=== PATIENT | female | born 1990 | race American Indian/Alaskan Native ===

== ENCOUNTER 2018-12-22 11:54 | Emergency (ER) | payer OTHER ==
--- NOTE | 2018-12-22 12:02 | Emergency Department Report ---
Chief Complaint: Urogenital-Female Stated Complaint: VAGINAL DISCOMFORT Time Seen by Provider: 12/22/18 12:00 - HPI History of Present Illness: vag pain saw her MD was given flagyl on for a week then started period and symptoms still she did not have wet prep or exam numerous sexual partners-3 lmp 3-28 occ etoh rx none pmh none mse completed MSE screening note: Focused history and physical exam performed. Due to findings the following was ordered: ED Disposition for MSE Condition: Stable
[2018-12-22 12:03] VITALS: BP 132/85
[2018-12-22 12:54] LABS: Bilirubin,Urine NEG (Negative); Blood,Urine SM (Negative); Color,Urine Yellow (Yellow); HCG Qualitative,Urine Negative (Negative); Protein,Urine <15 mg/dL mg/dL (Negative); Urobilinogen,Urine < 2.0 mg/dL (<2.0)
--- NOTE | 2018-12-22 14:08 | Emergency Department Report ---
ED Female HPI - General Chief complaint: Urogenital-Female Stated complaint: VAGINAL DISCOMFORT Time Seen by Provider: 12/22/18 12:00 Source: patient Mode of arrival: Ambulatory Limitations: No Limitations - History of Present Illness Initial comments: Multiple sex partners. One male and female to emergency department complaining of having some vaginal discomfort and pruritic fashion for about the last 1 week. States they had a sexual encounter December 01, after which she had some vaginal vaginal irritation was 1 to have that evaluated, was found to have bacterial vaginosis treated with medication, which did stop the discharge but did start a significant amount of itchiness to the to the vaginal area on the . She tried to manage this. They started to develop some vaginal discomfort and progressive fashion so wanted to have it reevaluated. She said the first time she was evaluated. The treatment was just based off of her history and no examination was done and she will like to have a culture and pelvic exam to make sure that that there was nothing makes. Reports no fever, chills, sweats, chest pain, palpitations, hematemesis, hematochezia, vaginal bleeding, dyspareunia Complaint: vaginal discharge Location: suprapubic Radiation: non-radiating Severity: mild Consistency: constant Improves with: none Worsens with: none Are you Now?: No Associated Symptoms: dysuria. denies: vaginal bleeding, abdominal pain, nausea/vomiting, fever/chills, headaches, loss of appetite, syncope, weakness - Related Data Previous Rx's Medication Instructions Recorded Last Taken Type Fluconazole [Diflucan TAB] 150 mg PO ONCE #1 tablet 12/22/18 Unknown Rx metroNIDAZOLE [Flagyl] 500 mg PO Q12HR #14 tab 12/22/18 Unknown Rx Allergies Allergy/AdvReac Type Severity Reaction Status Date / Time No Known Allergies Allergy Verified 12/22/18 12:02 ED Review of Systems ROS: Stated complaint: VAGINAL DISCOMFORT Other details as noted in HPI Constitutional: denies: chills, fever Eyes: denies: eye pain, eye discharge, vision change ENT: denies: ear pain, throat pain Respiratory: denies: cough, shortness of breath, wheezing Cardiovascular: denies: chest pain, palpitations Endocrine: no symptoms reported Gastrointestinal: denies: abdominal pain, nausea, diarrhea Genitourinary: dysuria. denies: urgency, discharge Musculoskeletal: denies: back pain, joint swelling, arthralgia Skin: denies: rash, lesions Neurological: denies: headache, weakness, paresthesias Psychiatric: denies: anxiety, depression Hematological/Lymphatic: denies: easy bleeding, easy bruising ED Past Medical Hx - Past Medical History Previous Medical History?: No - Surgical History Past Surgical History?: No - Social History Smoking Status: Current Some Day Smoker - Medications Home Medications: Home Medications Medication Instructions Recorded Confirmed Last Taken Type Fluconazole [Diflucan TAB] 150 mg PO ONCE #1 tablet 12/22/18 Unknown Rx metroNIDAZOLE [Flagyl] 500 mg PO Q12HR #14 tab 12/22/18 Unknown Rx ED Physical Exam - General Limitations: No Limitations General appearance: alert, in no apparent distress - Head Head exam: Present: atraumatic, normocephalic - Eye Eye exam: Present: normal appearance, PERRL - ENT ENT exam: Present: mucous membranes moist - Neck Neck exam: Present: normal inspection - Respiratory Respiratory exam: Present: normal lung sounds bilaterally. Absent: respiratory distress - Cardiovascular Cardiovascular Exam: Present: regular rate, normal rhythm. Absent: systolic murmur, diastolic murmur, rubs, gallop - GI/Abdominal GI/Abdominal exam: Present: soft, normal bowel sounds - External exam: Present: normal external exam Speculum exam: Present: vaginal discharge (yellowish and heavy), cervical discharge Bi-manual exam: Present: normal bi-manual exam - Extremities Exam Extremities exam: Present: normal inspection - Back Exam Back exam: Present: normal inspection - Neurological Exam Neurological exam: Present: alert, oriented X3 - Psychiatric Psychiatric exam: Present: normal affect, normal mood - Skin Skin exam: Present: warm, dry, intact, normal color. Absent: rash ED Course Vital Signs 12/22/18 12:00 Temperature 97.9 F Pulse Rate 79 Respiratory 18 Rate Blood Pressure 132/85 O2 Sat by Pulse 100 Oximetry Critical care attestation.: If time is entered above; I have spent that time in minutes in the direct care of this critically ill patient, excluding procedure time. ED Disposition Clinical Impression: Vaginitis, Bacterial vaginitis Disposition: [id number] PSY HOSP/PSY UNIT Is pt being admited?: No Does the pt Need Aspirin: No Condition: Stable Instructions: Bacterial Vaginosis (ED) Prescriptions: Fluconazole [Diflucan TAB] 150 mg PO ONCE #1 tablet metroNIDAZOLE [Flagyl] 500 mg PO Q12HR #14 tab Referrals: WILVER NEVAREZ MD [Primary Care Provider] - 3-5 Days Forms: Accompanied Note, STI Treatment and Prevention
== END 2018-12-22 16:01 | disposition home or self-care (01) ==
LOC: ED 11:54
DX: N76.0 Acute vaginitis (principal); F17.200 Nicotine dependence, unspecified, uncomplicated
CPT/HCPCS: 81001; 81025; 87210; 87591